=== PATIENT | male | born 1945 | race Caucasian/White ===

== ENCOUNTER → 2017-09-05 | Outpatient (CLI) | payer MEDICARE, OTHER ==
[~2017-09-05] MED LIST: ASPIR-LOW81 MG PO; CARDI-OMEGA1000 MG PO; CELEXA 20MG20 MG/TAB PO; CITALOPRAM HYDR20 MG PO; EPIPEN 2-PAK1 MG/ML IM; FORTAMET500 MG PO; GLUCOPHAGE500 MG/TAB PO; HCTZ 25MG25 MG PO; HYZAAR 50-12.1 UDTAB PO; LANTUS SOLOS100 U/ML SQ; LOTENSIN HCT 201 TAB PO; METFORMIN500 MG PO; NEXIUM40 MG PO; NORCO 325 MG-7.1 TAB PO; SYNTHROID 0.0.025 MG PO; TYLENOL 500MG500 MG PO; VICTOZA6 MG/ML SC; WELCHOL; WELCHOL 625MG625 MG PO
== END ==
LOC: SUN.DIA 07:54
DX: E11.9 Type 2 diabetes mellitus without complications (principal); Z79.4 Long term (current) use of insulin; E78.5 Hyperlipidemia, unspecified; I10 Essential (primary) hypertension; Z68.26 Body mass index [BMI] 26.0-26.9, adult; Z71.3 Dietary counseling and surveillance
CPT/HCPCS: G0108

== ENCOUNTER → 2017-11-17 | Outpatient (CLI) | payer MEDICARE, OTHER | LOC: SUN.DIA 10:46 | DX: E11.9 Type 2 diabetes mellitus without complications (principal); Z79.4 Long term (current) use of insulin; E78.5 Hyperlipidemia, unspecified; I10 Essential (primary) hypertension; Z68.24 Body mass index [BMI] 24.0-24.9, adult; Z71.3 Dietary counseling and surveillance | CPT/HCPCS: G0108 ==

== ENCOUNTER → 2018-01-09 | Outpatient (CLI) | payer MEDICARE, OTHER | LOC: SUN.DIA 09-05 11:02 | DX: E11.9 Type 2 diabetes mellitus without complications (principal); Z79.4 Long term (current) use of insulin; E78.5 Hyperlipidemia, unspecified; I10 Essential (primary) hypertension; Z71.3 Dietary counseling and surveillance | CPT/HCPCS: G0109 ==

== ENCOUNTER → 2018-01-16 | Outpatient (CLI) | payer MEDICARE, OTHER | LOC: SUN.DIA 09:00 | DX: E11.9 Type 2 diabetes mellitus without complications (principal); Z79.4 Long term (current) use of insulin; E78.5 Hyperlipidemia, unspecified; I10 Essential (primary) hypertension | CPT/HCPCS: G0109 ==

== ENCOUNTER → 2018-01-23 | Outpatient (CLI) | payer MEDICARE, OTHER | LOC: SUN.DIA 09:00 | DX: E11.9 Type 2 diabetes mellitus without complications (principal); Z79.4 Long term (current) use of insulin; E78.5 Hyperlipidemia, unspecified; I10 Essential (primary) hypertension; Z71.3 Dietary counseling and surveillance | CPT/HCPCS: G0109 ==

== ENCOUNTER → 2018-01-30 | Outpatient (CLI) | payer MEDICARE, OTHER | LOC: SUN.DIA 09:00 | DX: E11.9 Type 2 diabetes mellitus without complications (principal); Z79.4 Long term (current) use of insulin; E78.5 Hyperlipidemia, unspecified; I10 Essential (primary) hypertension; Z71.3 Dietary counseling and surveillance | CPT/HCPCS: G0109 ==

== ENCOUNTER 2021-02-05 20:38 | Emergency (ER) | payer MEDICARE, OTHER ==
[~2021-02-05] VITALS: Ht 172.7 cm; Wt 72.7 kg
[2021-02-05 20:54] VITALS: TEMP 98.1
[2021-02-05 21:30] LABS: BASO % 0.7 % (0.0-2.0); EOS # 0.1 (0.0-0.7); EOS % 2.1 % (0-4.0); GRAN # 3.4 (1.4-6.5); GRAN % 63.7 % (42.2-75.2); HEMATOCRIT 45.2 % (42.0-52.0); HEMOGLOBIN 14.6 g/dl (13.5-18.0); LYMPH # 1.2 (1.2-3.4); LYMPH % 22.4 % (20.0-51.0); MEAN CELL VOLUME 89 fl (80.0-100.0); MEAN CORPUSCULAR HEMOGLOBIN 29 pg (27.0-31.0); MEAN CORPUSCULAR HGB CONC 32 g/dl (33.0-37.0); MEAN PLATELET VOLUME 10.7 fl (7.4-10.4); MONO # 0.6 (0.1-0.6); MONO % 10.7 % (1.7-9.3); PLATELET COUNT 192 K/mm3 (130-400); RED BLOOD COUNT 5.08 M/mm3 (4.20-5.60); REDCELL DISTRIBUTION WIDTH-CV 13.2 % (11.5-14.5)
[2021-02-05 21:44] LABS: ALBUMIN 4.1 gm/dL (3.5-5.0); BILIRUBIN,TOTAL 0.3 mg/dL (0.0-1.0); CALCIUM 9.7 mg/dL (8.4-10.2); CREATININE, serum 0.96 (0.66-1.25); POTASSIUM 4.1 mmol/L (3.4-5.0); TOTAL PROTEIN 6.9 gm/dL (6.4-8.2)
[2021-02-05 21:52] LABS: PROTHROMBIN TIME 10.9 SECONDS (9.7-12.8)
[2021-02-05] MEDS ORDERED: PLAVIX 75MG TAB75 MG PO (22:11)
[2021-02-05 22:56] VITALS: BP 120/78; PULSE 76
== END 2021-02-05 22:44 | disposition home or self-care (01) ==
LOC: COL.ER 20:38
PROVIDERS: Emergency Medicine
DX: G45.9 Transient cerebral ischemic attack, unspecified (principal); Z86.79 Personal history of other diseases of the circulatory system; Z79.890 Hormone replacement therapy; Z79.82 Long term (current) use of aspirin; Z79.4 Long term (current) use of insulin

== ENCOUNTER → 2021-02-27 | Outpatient (CLI) | payer MEDICARE, OTHER ==
[~2021-02-27] MED LIST changes: +PLAVIX 75MG TAB75 MG PO
== END ==
LOC: COL.VAS 13:14
DX: G45.9 Transient cerebral ischemic attack, unspecified (principal); I34.0 Nonrheumatic mitral (valve) insufficiency; I51.7 Cardiomegaly; I25.3 Aneurysm of heart